=== PATIENT | female | born 1970 | race Two or more races ===

== ENCOUNTER 2024-11-11 08:45 | Inpatient (IN) | payer OTHER ==
[~2024-11-11] VITALS: Ht 157.5 cm; Wt 104.3 kg
[2024-11-11] MEDS ORDERED: LEXAPRO20 MG (09:38)
[2024-11-11] MEDS ORDERED: BENICAR20 MG PO (09:38)
[2024-11-11] MEDS ORDERED: WELLBUTRIN SR100 MG (09:39)
[2024-11-11] MEDS ORDERED: SEROQUEL200 MG (09:39)
[2024-11-11] MEDS ORDERED: PREVACID30 M1 (09:40)
[2024-11-11] MEDS ORDERED: CANNABIS (09:40)
[2024-11-11] MEDS ORDERED: BUSPAR (09:40)
[2024-11-11] MEDS ORDERED: [UNRECOGNIZED DRUG - REMARK] (09:41)
[2024-11-11 09:48] VITALS: BP 145/85
[2024-11-11 09:50] LABS: PH,URINE 5.5 (5.0-8.0); URINE APPEARANCE Cloudy; URINE BILIRRUBIN Small (NEGATIVE); URINE BLOOD Large; URINE COLOR Dark Yellow; URINE GLUCOSE Negative (NEGATIVE); URINE KETONE Trace (NEGATIVE); URINE LEUKOCYTE Moderate; URINE NITRATE Negative; URINE PROTEIN 30 (NEGATIVE)
[2024-11-11 09:51] LABS: URINE BACTERIA 768.5 uL (0.0-1933); URINE EPITHELIAL CELLS 21.6 uL (0.0-38.8); URINE RBC 1359.9 uL (0.0-20.8); URINE WBC 377.4 uL (0.0-23.2)
[2024-11-11 09:54] LABS: HEMATOCRIT 31.8 % (36.0-45.00); HEMOGLOBIN 10.2 g/dL (12.0-15.00); MEAN CELL VOLUME 79.7 fL (80.00-100.00); MEAN CORPUSCULAR HEMOGLOBIN 25.7 pg (27.00-32.0); MEAN CORPUSCULAR HGB CONC 32.2 g/dl (32.0-36.0); PLATELET COUNT 341 K/uL (150-450); RED BLOOD COUNT 3.99 M/uL (4.00-6.00); RED CELL DISTRIBUTION WIDTH 16.5 % (11.5-14.5)
[2024-11-11 10:08] LABS: PARTIAL THROMBOPLASTIN TIME 28.5 SECONDS (22.0-34.0); PROTHROMBIN TIME 10.9 SECONDS (9.0-11.5)
[2024-11-11 10:32] LABS: URINE CAST 0.29 uL (0.0-1.40)
[2024-11-11 10:33] LABS: URINE CRYSTALS MODERATE /HPF; URINE MUCUS MODERATE
[2024-11-11 10:53] LABS: ALBUMIN 3.6 gm/dL (3.4-5.0); BILIRUBIN TOTAL 0.29 mg/dL (0.3-1.2); CALCIUM 9.6 mg/dL (8.5-10.1); CREATININE SERUM 0.68 mg/dL (0.55-1.02); GFR 90.86; GLOBULINA 3.8 G/DL (2.4-3.5); POTASSIUM 3.77 mEq/L (3.5-5.1); TOTAL PROTEIN 7.4 gm/dL (6.4-8.2)
[2024-11-13] MEDS ORDERED: CEFAZOLIN SODIUM 1,000 MG VIAL ONE ×2 (06:54→07:12)
[2024-11-13] MEDS ORDERED: DEXAMETHASONE SODIUM PHOSPHATE 4 MG/ML VIAL ONE (07:12)
[2024-11-13] MEDS ORDERED: MORPHINE SULFATE 4 MG/ML VIAL IV ONE (12:25)
[2024-11-13 14:04] VITALS: BP 116/77; O2SAT 96
[2024-11-13] MEDS ORDERED: ENALAPRILAT DIHYDRATE 1.25 MG/ML VIAL IV PRN (15:00)
[2024-11-13] MEDS ORDERED: ONDANSETRON HCL 2 MG/ML VIAL IV PRN (15:00)
[2024-11-13 16:00] VITALS: BP 133/78; O2SAT 95
[2024-11-13] MEDS ORDERED: ACETAMINOPHEN 500 MG GEL..CAP PO SCH (17:00)
[2024-11-13] MEDS ORDERED: CYCLOBENZAPRINE HCL 5 MG TABLET PO SCH (17:00)
[2024-11-13] MEDS ORDERED: GABAPENTIN 100 MG CAPSULE PO SCH (17:00)
[2024-11-13] MEDS ORDERED: PANTOPRAZOLE SODIUM 40 MG/VIAL VIAL IV PUSH SCH (21:00)
[2024-11-14 00:13] VITALS: BP 129/83; O2SAT 96
[2024-11-14 08:00] VITALS: BP 115/69; O2SAT 95
[2024-11-14] MEDS ORDERED: PATIENTS OWN MEDICATION (MEDICAMENTO EN PISO) PO SCH (09:00)
[2024-11-14] MEDS ORDERED: QUETIAPINE FUMARATE 100 MG TABLET PO SCH (09:00)
[2024-11-14] MEDS ORDERED: BUSPIRONE HCL 15 MG TABLET PO SCH (09:00)
== END 2024-11-14 13:49 | disposition home or self-care (01) | DRG 626 ==
LOC: O/R 11-13 05:20 → SURH 11-13 08:45 → SURG 11-13 13:11
PROVIDERS: ADMIT Surgery; ATTEND Surgery
PROC: 07T10ZZ Resection of Right Neck Lymphatic, Open Approach (ICD-10-PCS; 2024-11-13)
PROC: 0GTH0ZZ Resection of Right Thyroid Gland Lobe, Open Approach (ICD-10-PCS; principal; 2024-11-13 12:30)
DX: C73 Malignant neoplasm of thyroid gland (principal); C77.0 Secondary and unspecified malignant neoplasm of lymph nodes of head, face and neck; E04.2 Nontoxic multinodular goiter

== ENCOUNTER 2025-01-12 08:50 | Outpatient (CLI) | payer OTHER ==
[~2025-01-12 08:50] MED LIST: BENICAR20 MG PO; BUSPAR; CANNABIS; LEXAPRO20 MG; PREVACID30 M1; SEROQUEL200 MG; WELLBUTRIN SR100 MG; [UNRECOGNIZED DRUG - REMARK]
== END 2025-01-12 08:53 | disposition home or self-care (01) ==
LOC: SONOGRAMA 08:50
PROVIDERS: ATTEND Pathology Anatomic Pathology & Clinical Pathology
DX: R59.0 Localized enlarged lymph nodes (principal); C73 Malignant neoplasm of thyroid gland

== ENCOUNTER 2025-04-11 09:17 | Inpatient (IN) | payer OTHER ==
[~2025-04-11] VITALS: Ht 157.5 cm; Wt 102.1 kg
--- NOTE | 2025-04-11 09:21 | NUR ---
SE RECIBE PTE ALERTA, ORIENTADA X3 Y AMBULANDO. PTE PRESENTA REFERIDO PARA ADMICION POR ANEMIA. SE MIDEN S/V Y SE UBICA.
[2025-04-11] MEDS ORDERED: 0.9 % SODIUM CHLORIDE 500 ML IV SCH (10:00)
--- NOTE | 2025-04-11 10:28 | NUR ---
SE ORIENTA PTE SOBRE TX MEDICO Y PTE REFIERE ENTENDER. SE J LUIS MUESTRAS DE LAB Y SE ADMINISTRAN MEDICAMENTOS NEISHA ORDEN MEDICA BAJO MEDIDAS ASEPTICAS.
[2025-04-11 10:48] LABS: BASO % 0.6 % (0.1-1.2); EOS # 0.12 (0.04-0.54); EOS % 1.8 % (0.7-7.0); LYMPH # 1.83 (1.18-3.74); LYMPH % 27.1 % (19.3-53.1); MEAN PLATELET VOLUME 9.90 fl (9.4-12.4); MONO # 0.51 (0.24-0.82); MONO % 7.5 % (4.7-12.5); NEUT # 4.24 (1.56-6.13); NEUT % 62.7 % (34.0-71.1); RED CELL DISTRIBUTION WIDTH 18.6 % (11.6-14.4)
[2025-04-11 11:08] LABS: BUN CREA RATIO 13.0 (7.0-25.0); CREATININE SERUM 0.79 mg/dL (0.55-1.02); GFR 76.13; GLUCOSE FASTING 111.0 mg/dL (65-100); OSMOLALITY SERUM 283.0 MOSM/KG (275-295)
[2025-04-11 15:45] VITALS: BP 120/81; O2SAT 97
[2025-04-11 17:49] VITALS: BP 124/77
[2025-04-11] MEDS ORDERED: QUETIAPINE FUMARATE 100 MG TABLET PO SCH (21:00)
[2025-04-11] MEDS ORDERED: BUSPIRONE HCL 15 MG TABLET PO SCH (21:00)
[2025-04-12 02:27] LABS: BASO % 0.9 % (0.1-1.2); EOS # 0.15 (0.04-0.54); EOS % 2.2 % (0.7-7.0); LYMPH # 2.56 (1.18-3.74); LYMPH % 38.2 % (19.3-53.1); MEAN PLATELET VOLUME 9.40 fl (9.4-12.4); MONO # 0.49 (0.24-0.82); MONO % 7.3 % (4.7-12.5); NEUT # 3.44 (1.56-6.13); NEUT % 51.3 % (34.0-71.1); RED CELL DISTRIBUTION WIDTH 17.3 % (11.6-14.4)
[2025-04-12 02:45] VITALS: BP 108/66; O2SAT 98
[2025-04-12] MEDS ORDERED: IRON FUM,PS/FOLIC/BCOMP,C NO.9 1 CAP CAPSULE PO SCH (09:00)
[2025-04-12] MEDS ORDERED: BUPROPION HCL 150 MG TABLET.SA PO SCH (09:00)
[2025-04-12] MEDS ORDERED: PATIENTS OWN MEDICATION (MEDICAMENTO EN PISO) PO SCH (09:00)
[2025-04-12] MEDS ORDERED: FOLIC ACID 1 MG TABLET PO SCH (09:00)
[2025-04-12 09:03] VITALS: BP 121/75
[2025-04-12] MEDS ORDERED: SOD FERRIC GLUC COMPLX/SUCROSE 125 MG in 0.9 % SODIUM CHLORIDE 100 ML IV SCH (17:00)
[2025-04-12 17:33] VITALS: BP 130/80; O2SAT 98
[2025-04-12] MEDS ORDERED: BUSPIRONE HCL 15 MG TABLET PO SCH (21:00)
[2025-04-13] MEDS ORDERED: PATIENTS OWN MEDICATION (MEDICAMENTO EN PISO) PO SCH (09:00)
== END 2025-04-12 17:35 | disposition home or self-care (01) | DRG 812 ==
LOC: ER 09:17 → MEDJ 13:11
PROVIDERS: Emergency Medicine; ADMIT Internal Medicine; ATTEND Internal Medicine
PROC: 30233N1 Transfusion of Nonautologous Red Blood Cells into Peripheral Vein, Percutaneous Approach (ICD-10-PCS; principal; 2025-04-11)
DX: D64.9 Anemia, unspecified (principal)

== ENCOUNTER 2025-04-13 11:00 | Inpatient (IN) | payer OTHER ==
[2025-04-09 12:52] LABS: BASO % 0.7 % (0.1-1.2); EOS # 0.21 (0.04-0.54); EOS % 3.0 % (0.7-7.0); LYMPH # 2.52 (1.18-3.74); LYMPH % 35.5 % (19.3-53.1); MEAN PLATELET VOLUME 9.80 fl (9.4-12.4); MONO # 0.40 (0.24-0.82); MONO % 5.6 % (4.7-12.5); NEUT # 3.90 (1.56-6.13); NEUT % 54.9 % (34.0-71.1); RED CELL DISTRIBUTION WIDTH 18.6 % (11.6-14.4)
[2025-04-09 12:56] LABS: URINE APPEARANCE Turbid; URINE BILIRRUBIN Small (NEGATIVE); URINE BLOOD Large; URINE COLOR Dark Yellow; URINE GLUCOSE Negative (NEGATIVE); URINE KETONE Trace (NEGATIVE); URINE LEUKOCYTE Small; URINE NITRATE Positive; URINE PROTEIN 30 (NEGATIVE); URINE UROBILINOGEN 1.0 E.U./dl
[2025-04-09 12:57] LABS: URINE EPITHELIAL CELLS 19.3 uL (0.0-38.8); URINE RBC 1015.8 uL (0.0-20.8); URINE WBC 207.6 uL (0.0-23.2)
[2025-04-09 13:00] LABS: URINE BACTERIA > 9821.5 uL (0.0-1933); URINE CAST 0.73 uL (0.0-1.40)
[2025-04-09 13:14] LABS: INR 0.99
[2025-04-09 13:37] VITALS: BP 125/69
[2025-04-09 13:46] LABS: ALT/SGPT 45.0 U/L (12-78); AST/SGOT 38.0 U/L (15-37); BILIRUBIN TOTAL 0.36 mg/dL (0.3-1.2); BUN CREA RATIO 15.0 (7.0-25.0); CREATININE SERUM 0.8 mg/dL (0.55-1.02); GFR 75.03; GLOBULINA 3.9 G/DL (2.4-3.5); GLUCOSE FASTING 87.0 mg/dL (65-100); OSMOLALITY SERUM 280.0 MOSM/KG (275-295)
[~2025-04-13] VITALS: Ht 157.5 cm; Wt 102.5 kg
[2025-04-13] MEDS ORDERED: PANTOPRAZOLE SODIUM 40 MG/VIAL VIAL IV ONE (13:15)
[2025-04-13] MEDS ORDERED: DEXAMETHASONE SODIUM PHOSP/PF 10 MG/ML VIAL IV ONE (13:15)
[2025-04-13] MEDS ORDERED: ONDANSETRON HCL 2 MG/ML VIAL IV PRN (14:00)
[2025-04-13] MEDS ORDERED: ENALAPRILAT DIHYDRATE 1.25 MG/ML VIAL IV PRN (14:00)
[2025-04-13] MEDS ORDERED: ACETAMINOPHEN 500 MG GEL..CAP PO SCH (17:00)
[2025-04-13] MEDS ORDERED: CYCLOBENZAPRINE HCL 5 MG TABLET PO SCH (17:00)
[2025-04-13] MEDS ORDERED: LIDOCAINE HCL 30 ML,MAG HYDROX/ALUMINUM HYD/SIMETH 30 ML,DIPHENHYDRAMINE HCL 75 MG MM SCH (17:00)
[2025-04-13] MEDS ORDERED: TRAMADOL HCL 50 MG TABLET PO SCH (17:00)
[2025-04-13 20:00] VITALS: BP 168/76; O2SAT 96
[2025-04-13] MEDS ORDERED: FAMOTIDINE/PF 20 MG/2 ML VIAL IV SCH (20:00)
[2025-04-13] MEDS ORDERED: PANTOPRAZOLE SODIUM 40 MG/VIAL VIAL IV PUSH SCH (21:00)
[2025-04-14 00:56] VITALS: BP 118/78; O2SAT 96
[2025-04-14 06:29] LABS: BASO % 0.2 % (0.1-1.2); EOS # 0.00 (0.04-0.54); EOS % 0.0 % (0.7-7.0); LYMPH # 1.73 (1.18-3.74); LYMPH % 16.1 % (19.3-53.1); MEAN PLATELET VOLUME 9.60 fl (9.4-12.4); MONO # 0.66 (0.24-0.82); MONO % 6.1 % (4.7-12.5); NEUT # 8.32 (1.56-6.13); NEUT % 77.3 % (34.0-71.1); RED CELL DISTRIBUTION WIDTH 17.8 % (11.6-14.4)
[2025-04-14 08:54] VITALS: BP 114/76; O2SAT 97
[2025-04-14] MEDS ORDERED: ESCITALOPRAM OXALATE 20 MG TABLET PO SCH (09:00)
[2025-04-14] MEDS ORDERED: BUPROPION HCL 150 MG TABLET.SA PO SCH (09:00)
[2025-04-14] MEDS ORDERED: QUETIAPINE FUMARATE 100 MG TABLET PO SCH (09:00)
[2025-04-14] MEDS ORDERED: BUSPIRONE HCL 15 MG TABLET PO SCH (09:00)
[2025-04-15] MEDS ORDERED: LEVOTHYROXINE SODIUM 175 MCG TABLET PO SCH (07:00)
== END 2025-04-14 13:13 | disposition home or self-care (01) | DRG 627 ==
LOC: CIR.AMB 11:00 → O/R 15:41 → SURH 15:41
PROVIDERS: ADMIT Surgery; ATTEND Surgery
PROC: 0GTG0ZZ Resection of Left Thyroid Gland Lobe, Open Approach (ICD-10-PCS; principal; 2025-04-13 09:45)
DX: C73 Malignant neoplasm of thyroid gland (principal)

== ENCOUNTER 2025-06-17 10:25 | Outpatient (CLI) | payer OTHER | END 2025-06-17 10:26 | disposition home or self-care (01) | LOC: NUCLEAR 10:25 | PROVIDERS: ATTEND Internal Medicine Sports Medicine | DX: C73 Malignant neoplasm of thyroid gland (principal) ==

== ENCOUNTER → 2025-06-24 07:14 | Outpatient (CLI) | payer OTHER | END | disposition home or self-care (01) | LOC: NUCLEAR 07:14 | PROVIDERS: ATTEND Internal Medicine Sports Medicine | DX: C73 Malignant neoplasm of thyroid gland (principal) ==